=== PATIENT | male | born 1960 | race Caucasian/White ===

== ENCOUNTER → 2018-10-10 | Outpatient (CLI) | payer OTHER ==
--- NOTE | 2018-10-10 13:03 | KCIC ---
EXAM: MRI RIGHT KNEE DATE: 10/10/2018 9:30 AM CLINICAL INDICATION: Right knee pain, instability. Progressing over 30 years. COMPARISON: Radiographs 09/11/2018 6 TECHNIQUE: Multiplanar, multisequence MRI of the right knee was performed without contrast. FINDINGS: Small right knee joint effusion. 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 Edema tracking inferiorly along the lower leg likely from recent partial rupture. The ACL and PCL are intact. The MCL, fibular collateral ligament, biceps femoris and IT band are intact. The popliteus tendon is normal in signal and morphology, intact. Extensor mechanism is intact. Borderline lateral patellar tracking. Medial meniscus: There is a complex tear through the posterior horn of the medial meniscus with oblique and radial components. Lateral meniscus: Intact Mild prepatellar soft tissue swelling. Mild chondral thinning at the weightbearing surface of the heel femoral condyle. No evidence for fracture or osteonecrosis. IMPRESSION: 1. Small multiseptated Michael's cyst with edema tracking inferiorly along the leg, likely recent partial rupture. 2. Small right knee joint effusion. 3. Complex tear posterior horn medial meniscus with oblique and radial components. 4. Chondral thinning medial femoral condyle Electronically signed by: Zeferino Flores MD (10/10/2018 1:00 PM) [facility]
== END | disposition home or self-care (01) ==
LOC: KCIC MRI 09:02
PROVIDERS: ATTEND Orthopaedic Surgery
DX: S83.241A Other tear of medial meniscus, current injury, right knee, initial encounter (principal); M71.21 Synovial cyst of popliteal space [Baker], right knee; M25.461 Effusion, right knee; R60.0 Localized edema; X58.XXXA Exposure to other specified factors, initial encounter; Y93.89 Activity, other specified; Y92.89 Other specified places as the place of occurrence of the external cause; Y99.8 Other external cause status
CPT/HCPCS: 73721

== ENCOUNTER → 2018-12-29 | Outpatient (CLI) | payer OTHER ==
--- NOTE | 2018-12-29 12:35 | KCIC ---
MR of the right tibia fibula HISTORY: Michael's cyst. Medial and mid calf pain. TECHNIQUE: Routine multiplanar sequences are obtained. FINDINGS: Small partially visualized joint effusion at the knee. There is a small partially visualized Michael's cyst. Slightly smaller when compared with MRI knee of October 10. There is some mild disorganized fluid signal is posterior to the proximal tibia and popliteus was not seen on the previous knee MRI. This could represent some leakage or rupture of the Michael's cyst as it is in close proximity to the cyst. No abnormal fluid or edema is seen within the calf or lower leg elsewhere. No bone lesion, periosteal reaction, marrow edema or fracture is seen. IMPRESSION: 1. Small Michael's cyst, slightly smaller than on prior study from October 10. 2. There is a small collection of disorganized fluid inferior and lateral to this cyst, along the posterior popliteus muscle, suggesting mild leakage or rupture. Electronically signed by: Tony Lewis MD (12/29/2018 12:32 PM) [facility]
== END | disposition home or self-care (01) ==
LOC: KCIC MRI 11:18
PROVIDERS: ATTEND Orthopaedic Surgery
DX: M71.21 Synovial cyst of popliteal space [Baker], right knee (principal); M25.461 Effusion, right knee
CPT/HCPCS: 73718

== ENCOUNTER → 2020-03-28 | Outpatient (CLI) | payer OTHER ==
[~2020-03-28] MED LIST: CHOL500050 PO; DIAZ5TAB PO; HYDR12.58 PO; LEVO200T5 PO; LOSA-73 PO; MULT-121 PO; OXYC1TAB15 PO; PROM25TA10 PO; SIMV20TA18 PO; TEST200V3 IM; VENL75TA PO
== END | disposition home or self-care (01) ==
LOC: LAB 13:44
PROVIDERS: ATTEND Orthopaedic Surgery
DX: Z20.828 Contact with and (suspected) exposure to other viral communicable diseases (principal)
CPT/HCPCS: U0003-CS

== ENCOUNTER 2020-04-01 10:41 | Day surgery (SDC) | payer OTHER ==
[~2020-04-01] VITALS: Ht 170.2 cm; Wt 131.1 kg
[~2020-04-01 10:41] MED LIST changes: +BUPIVACAINE MPF 0.25% 30 ML VIAL. ONE; +BUPIVACAINE-EPI 0.5%-1:200000 MPF 30 ML VIAL. ONE; -DIAZ5TAB PO; +IV RINGERS,LACTATED 1000ML 1,000 ML IV SCH; +LIDOCAINE 1% PF 2 ML VIAL. ID PRN; +ONDANSETRON PF 4 MG/2 ML VIAL. IV PRN; -OXYC1TAB15 PO; +PROCHLORPERAZINE 10 MG/2 ML VIAL. IV PRN; -PROM25TA10 PO; +ceFAZolin SODIUM 3 GM in IV DEXTROSE 5% 100ML 100 ML IV PRN; +fentaNYL PF VIAL 100 MCG/2 ML VIAL IV PRN
[2020-04-01] MEDS ORDERED: fentaNYL PF VIAL 250 MCG/5 ML VIAL ONE (12:51)
[2020-04-01] MEDS ORDERED: ePHEDrine PF IN SALINE 50 MG/10 ML SYRINGE. IV ONE (14:06)
[2020-04-01] MEDS ORDERED: ONDANSETRON PF 4 MG/2 ML VIAL. ONE (14:06)
[2020-04-01] MEDS ORDERED: PROPOFOL 10 MG/ML (20ML) VIAL. IV ONE ×2 (14:06)
[2020-04-01] MEDS ORDERED: DEXAMETHASONE SOD PHOS 4 MG/ML VIAL ONE (14:06)
[2020-04-01] MEDS ORDERED: LIDOCAINE 2% PF 5 ML VIAL. ONE (14:06)
[2020-04-01] MEDS ORDERED: SEVOFLURANE > 120 MINUTES. IH ONE (15:33)
[2020-04-01] MEDS ORDERED: fentaNYL PF VIAL 100 MCG/2 ML VIAL ONE (15:37)
[2020-04-01] MEDS ORDERED: MORPHINE SULFATE 2 MG/ML VIAL. ONE (15:50)
[2020-04-01] MEDS: MORPHINE SULFATE 2 MG/ML VIAL. IV PRN ×2 (15:51→16:15)
[2020-04-01] MEDS ORDERED: GABAPENTIN 300 MG CAPSULE. PO ONE (16:00)
[2020-04-01] MEDS: HYDROmorphone 2 MG/ML VIAL IV PRN ×4 (16:00→16:30)
[2020-04-01] MEDS ORDERED: HYDROmorphone 2 MG/ML VIAL ONE (16:01)
[2020-04-01] MEDS ORDERED: diazePAM 5 MG TABLET PO ONE (16:30)
[2020-04-01] MEDS ORDERED: oxyCODONE/APAP 5/325 1 TAB TABLET PO ONE (16:30)
[2020-04-01] MEDS ORDERED: DIAZ5TAB PO (17:09)
[2020-04-01 17:10] VITALS: BP 139/71
[2020-04-01] MEDS ORDERED: PROM25TA10 PO (17:13)
[2020-04-01] MEDS ORDERED: OXYC1TAB15 PO (17:16)
--- NOTE | 2020-04-01 18:00 | RAD ---
Right elbow 2 views INDICATION: Injury and right elbow pain. Preop assessment FINDINGS: Frontal and lateral views of the right elbow were obtained. They reveal abnormal soft tissue gas in the region of the antecubital fossa and a 1.1 cm long radiopaque foreign body present projecting over the proximal radioulnar joint along the flexor surface. There is subtle cortical irregularity on the radius that could represent sequelae of penetrating injury. IMPRESSION: Evidence of penetrating injury with an embedded radiopaque foreign body near the proximal radioulnar joint of the right elbow. Although no dislocation is apparent, cannot exclude a fracture of the proximal radiusFrom penetrating trauma by a foreign body Electronically signed by: Nandini Alegria MD (04/01/2020 5:57 PM) [id number]
--- NOTE | 2020-04-08 15:42 | PDOC4 ---
Operative Note Operative Note Date of Procedure: April 01, 2020 (late entry, this note was an notated/dictated the day of surgery, and I still had a copy of the Microsoft Word document with the patient's dictation. I was certain that I had made an op note for this patient previously, but if not, here it is.) Pre-Op Diagnosis: Right Distal Biceps Tear [id number] Post-Op Diagnosis: Right Distal Biceps Tear [id number] Procedure: Right Elbow Distal Biceps Reinsertion CPT 95129 Surgeon: Arcelia Linn MD Inspector Quality Assurance: KAVITHA Braga Anesthesia: General EBL: 50 mL Specimens Obtained: none Complications: none Drains: none Tourniquet: 16 minutes at 275 mm Hg Implants: Arthrex biceps button and 7 x 10 mm PEEK tenodesis screw. Indications for Procedure: This patient is a 60 -year-old who himself at work while carrying a cabinet. He tells me while he was picking up a heavy cabinet and he felt a tearing sensation in the biceps on the right side with subsequent pain and swelling. He describes an eccentric type injury where he was flexing the elbow but it got forced into extension. He denies any prior history of injury to the elbow or biceps. He is left-hand dominant and works for the [employer]. History and exam are consistent with distal biceps rupture, and I recommended surgical repair. We discussed operative versus nonoperative management, and that most active patients benefit from surgical repair/reinsertion. We discussed the potential risks of that surgery including posterior interosseous nerve injury, radial nerve injury, lateral antebrachial cutaneous nerve injury, other neurovascular injuries, synostosis, pain, stiffness, weakness, re-tear, infection, radius fracture, hardware complications or other potential surgical or anesthetic complications. I described the Arthrex distal biceps reinsertion technique with a button and screw. All of his questions about surgery were answered and he desired to proceed. Written consent was obtained. Procedure in Detail: The patient was identified in the preoperative holding area. The correct right upper extremity was marked by me. The patient was taken to the operating room where general anesthetic was used. The patient was positioned supine on the operating table with the arm extended on an armboard. Preoperative antibiotics were given intravenously. A timeout procedure was performed. The limb was prepared circumferentially with ChloraPrep solution from the shoulder to the fingertips and then sterile drapes were applied. A sterile tourniquet was applied. An impervious stockinette and Coban were used over the lower arm. An Esmarch bandage was used to exsanguinate the limb. The tourniquet was inflated. A 4 cm transverse incision was made over the area of the distal biceps, distal to the elbow flexion crease. Care was made to retract the lateral antebrachial cutaneous nerve. Blunt dissection was used, and then self-retaining retractors were placed and the radial tuberosity was easily identified. The usual leash of venous arcade vessels was cauterized with monopolar electrocautery. There was an avulsion type injury with no remaining intact biceps tendon at the normal insertion. I used digital dissection proximally to identify the proximal stump of the tendon. This had retracted well above the elbow flexion crease, and initially I was looking in a more deep plane than the superficial location where the tendon was ultimately located and palpated with the fingertip. Ultimately I released the tourniquet and used milking maneuver to bring to the tendon stump closer to the elbow flexion crease. Bipolar electrocautery was used carefully for hemostasis. I made a second incision proximal to the elbow flexion crease, only about 2 cm in width, to deliver the stump of the tendon, freshendd the end of it by trimming away some of the excess abnormal tissue, and then I whipstitched it with a #2 FiberWire Fiberloop suture and a Gonzalez needle using the FiberLoop technique. The sutures and the tendon stump were then passed in their normal plane back to the location of the radial tuberosity. I then attached the biceps button, using the tension slide technique, passing the sutures with the Gonzalez needle in the described pattern. A hemostat was used to hold the sutures and the button while I prepared the bone tunnel. My surgical services assistant held the elbow in extension and full supination, while I used a 3.2 mm guidepin angled 30 degrees ulnar to avoid posterior interosseous nerve injury. The guidepin was placed without difficulty using a wire funeral car driver in a bicortical fashion. I then used an 8 mm fluted reamer to create the unicortical socket 10 mm in depth. Copious saline irrigation was used to remove all bone fragments, and the reamer after the guidepin and reamer had been removed. I then inserted the biceps button through the 3.2 mm drill hole, using the button water quality specialist. Once it crossed to the far cortex, I was able to flip the button and listened to it audibly deploy against the bone, and then I used the tension slide technique to deliver the biceps tendon stump into the bone socket while my surgical services assistant flexed the elbow to allow that to occur. A free needle was then used to pass 1 limb of the fiber loop #2 suture through the tendon, and the sutures were tied for security. The 7 x 10 mm PEEK tenodesis screw was loaded onto the funeral car driver, and a suture passer was used to pull one limb of the suture through the screwdriver. The 7 x 10 mm PEEK tenodesis screw was then wedged into the socket and inserted to its full 10 mm depth. The #2 FiberWire sutures were now tied, with one inside and one outside of the screw for fixation security. The sutures were trimmed. The repair was palpated and visualized, with solid fixation and insertion of the tendon stump into the bone socket. I had the small C arm prepared but did not feel it was necessary as the deployment of the button was uncomplicated and was secured with tension audibly against the radial cortex. Copious saline irrigation was used. My surgical services assistant closed the subcutaneous tissues with #2-0 Vicryl. He then closed the skin edges with #3-0 Prolene interrupted sutures. Local anesthetic with epinephrine was injected into the skin edges for additional hemostasis and pain relief. Xeroform and a sterile dressing were applied. Needle and sponge counts were correct. There were no apparent complications. ARCELIA LINN MD Apr 08, 2020 15:42
--- NOTE | 2020-04-08 15:47 | PDOC ---
BRIEF OPERATIVE NOTE Date: Apr 01, 2020 Pre-Op Diagnosis Right Distal Biceps Tear [id number] Post-Op Diagnosis Right Distal Biceps Tear [id number] Procedure Performed Right Elbow Distal Biceps Reinsertion CPT 62730 Surgeon Temitope Puentes Anesthesia Type: General Blood Loss 50 mL Specimens Obtained none Findings High-grade distal biceps tear, easily repaired with Arthrex biceps button and screw Complications none Operative Note Indications for Procedure: This patient is a 60 -year-old who himself at work while carrying a cabinet. He tells me while he was picking up a heavy cabinet and he felt a tearing sensation in the biceps on the right side with subsequent pain and swelling. He describes an eccentric type injury where he was flexing the elbow but it got forced into extension. He denies any prior history of injury to the elbow or biceps. He is left-hand dominant and works for the [employer]. History and exam are consistent with distal biceps rupture, and I recommended surgical repair. We discussed operative versus nonoperative management, and that most active patients benefit from surgical repair/reinsertion. We discussed the potential risks of that surgery including posterior interosseous nerve injury, radial nerve injury, lateral antebrachial cutaneous nerve injury, other neurovascular injuries, synostosis, pain, stiffness, weakness, re-tear, infection, radius fracture, hardware complications or other potential surgical or anesthetic complications. I described the Arthrex distal biceps reinsertion technique with a button and screw. All of his questions about surgery were answered and he desired to proceed. Written consent was obtained. Procedure in Detail: The patient was identified in the preoperative holding area. The correct right upper extremity was marked by me. The patient was taken to the operating room where general anesthetic was used. The patient was positioned supine on the operating table with the arm extended on an armboard. Preoperative antibiotics were given intravenously. A timeout procedure was performed. The limb was prepared circumferentially with ChloraPrep solution from the shoulder to the fingertips and then sterile drapes were applied. A sterile tourniquet was applied. An impervious stockinette and Coban were used over the lower arm. An Esmarch bandage was used to exsanguinate the limb. The tourniquet was inflated. A 4 cm transverse incision was made over the area of the distal biceps, distal to the elbow flexion crease. Care was made to retract the lateral antebrachial cutaneous nerve. Blunt dissection was used, and then self-retaining retractors were placed and the radial tuberosity was easily identified. The usual leash of venous arcade vessels was cauterized with monopolar electrocautery. There was an avulsion type injury with no remaining intact biceps tendon at the normal insertion. I used digital dissection proximally to identify the proximal stump of the tendon. This had retracted well above the elbow flexion crease, and initially I was looking in a more deep plane than the superficial location where the tendon was ultimately located and palpated with the fingertip. Ultimately I released the tourniquet and used milking maneuver to bring to the tendon stump closer to the elbow flexion crease. Bipolar electrocautery was used carefully for hemostasis. I made a second incision proximal to the elbow flexion crease, only about 2 cm in width, to deliver the stump of the tendon, freshendd the end of it by trimming away some of the excess abnormal tissue, and then I whipstitched it with a #2 FiberWire Fiberloop suture and a Gonzalez needle using the FiberLoop technique. The sutures and the tendon stump were then passed in their normal plane back to the location of the radial tuberosity. I then attached the biceps button, using the tension slide technique, passing the sutures with the Gonzalez needle in the described pattern. A hemostat was used to hold the sutures and the button while I prepared the bone tunnel. My timber management assistant held the elbow in extension and full supination, while I used a 3.2 mm guidepin angled 30 degrees ulnar to avoid posterior interosseous nerve injury. The guidepin was placed without difficulty using a wire stacker driver in a bicortical fashion. I then used an 8 mm fluted reamer to create the unicortical socket 10 mm in depth. Copious saline irrigation was used to remove all bone fragments, and the reamer after the guidepin and reamer had been removed. I then inserted the biceps button through the 3.2 mm drill hole, using the button student dean. Once it crossed to the far cortex, I was able to flip the button and listened to it audibly deploy against the bone, and then I used the tension slide technique to deliver the biceps tendon stump into the bone socket while my timber management assistant flexed the elbow to allow that to occur. A free needle was then used to pass 1 limb of the fiber loop #2 suture through the tendon, and the sutures were tied for security. The 7 x 10 mm PEEK tenodesis screw was loaded onto the stacker driver, and a suture passer was used to pull one limb of the suture through the screwdriver. The 7 x 10 mm PEEK tenodesis screw was then wedged into the socket and inserted to its full 10 mm depth. The #2 FiberWire sutures were now tied, with one inside and one outside of the screw for fixation security. The sutures were trimmed. The repair was palpated and visualized, with solid fixation and insertion of the tendon stump into the bone socket. I had the small C arm prepared but did not feel it was necessary as the deployment of the button was uncomplicated and was secured with tension audibly against the radial cortex. Copious saline irrigation was used. My timber management assistant closed the subcutaneous tissues with #2-0 Vicryl. He then closed the skin edges with #3-0 Prolene int errupted sutures. Local anesthetic with epinephrine was injected into the skin edges for additional hemostasis and pain relief. Xeroform and a sterile dressing were applied. Needle and sponge counts were correct. There were no apparent complications. ARCELIA NAM MD Apr 08, 2020 15:47
== END 2020-04-01 17:50 | disposition home or self-care (01) ==
LOC: SURG 10:41
PROVIDERS: ATTEND Orthopaedic Surgery
DX: S46.211A Strain of muscle, fascia and tendon of other parts of biceps, right arm, initial encounter (principal); X58.XXXA Exposure to other specified factors, initial encounter; Y93.89 Activity, other specified; Y92.89 Other specified places as the place of occurrence of the external cause; Y99.8 Other external cause status; Z79.899 Other long term (current) drug therapy
CPT/HCPCS: 24342; 73070; A7015; J1100; J1170; J2270; J2405; J2704; J3010; J7120; J3490; A4565